=== PATIENT | male | born 2000 | race Caucasian/White ===

== ENCOUNTER 2022-09-25 16:35 | Emergency (ER) | payer OTHER, SELFPAY ==
[2022-09-25 16:40] VITALS: BP 118/73; PULSE 78; RESP 18; TEMP 37.2; O2SAT 98
--- NOTE | 2022-09-25 16:45 | DI.RAD_ITS ---
Exam(s) XR SHOULDER RT COMPLETE 2+V XR CLAVICLE RT EXAM: XR SHOULDER RT COMPLETE 2+V and XR clavicle RT CLINICAL HISTORY: pain s/p fall skiing. TECHNIQUE: 2D digital imaging was performed of the right clavicle and shoulder. Five images were ob tained. AP, Grashey, Y views were obtained. COMPARISON: There are no priors for comparison. FINDINGS: BONES: There is an acute comminuted fracture of the midshaft of the right clavicle with mild displace ment of the fractures. The medial fracture fragment is superiorly displaced relative to the lateral fracture fragment. No bony destructive lesion is seen. JOINTS: No dislocation present. SOFT TISSUE: Normal. IMPRESSION: Comminuted mildly displaced right clavicular fracture. DATA REPOSITORY: RADIATION DOSE DELIVERED:
--- NOTE | 2022-09-25 16:50 | ED.GENADUL_ITS ---
Discharge Plan Disposition Patient Disposition: Home Condition: Stable Discharge Details Chief Complaint: Orthopedic Clinical Impression: Closed fracture of right clavicle Primary Care Provider: Kristina,Local ED Provider: Perfecto Raymundo Home Meds and New Rx's Prescriptions: No Action No Known Home Meds Discharge Instructions Instructions: Clavicle Fracture (ED) Additional Instructions: Follow up with an orthopedist in your home area you can take 1000mg tylenol and 600mg ibuprofen every 6 hours as needed if you feel more ill, have severe worsening pain or new symptoms such as difficulty breathing return to the emergency department Medical Decision Making 22 yo male who denies chronic medical problems comes in with cc of right shoulder pain s/p fall while skiing today. He says he was wearing a helmet and caught an edge and fell landing on the right shoulder, no loc. Has no head pain, neck pain, chest/abd pain or back pain. HE has pain over the ac joint of the right shoulder, no visible or palpable deformity. No midline c spine tenderness, no signs of trauma to the head, caox4, perrl. He has tenderness at the ac joint and limited rom of the shoulder due to pain. No tenderness in the proximal or mid clavicle, no tenderness in the humerus, elbow, forearm, wrist or hand with intact distal sensation and pulses. Suspect ac joint sprain, will obtain xrays to further evaluate xrays confirm clavicle fracture, placed in sling, no changes in exam. HE is from [place] and is going home tomorrow, advised to see an orthopedist in his area, return precautions given Differential Diagnosis Differential Diagnosis: ac joint injury, fracture, sprain Imaging Data Radiologic Study: Attestation: I personally reviewed and interpreted this imaging study as follows: My impression: clavicle fracture on clavicle xray Radiologic Study #2: Attestation: I personally reviewed and interpreted this imaging study as follows: Imaging: X-Ray My impression: clavicle fx on shoulder xray HPI General Mode of arrival: ambulatory . Date/Time Provider Initiated Documentation: 09/25/22 16:36 . Limitations to Documentation: no limitations . Information obtained by: patient . History of Present Illness 22 year old M presents to the emergency department with the chief complaint of right shoulder pain, described as moderate, and it has been constant. No relieving factors improve symptom(s), No exacerbating factors reported . Patient notes denies fever/chills, nausea/vomiting and shortness of breath. Patient did receive the following treatments prior to arrival, none Related Data Home Medications Medication Instructions Recorded Confirmed Unknown [No Known Home Meds] 09/25/22 09/25/22 Allergies Allergy/AdvReac Type Severity Reaction Status Date / Time No Known Allergies Allergy Unverified 09/25/22 16:43 General Stated Complaint: Orthopedic PRASHANTH: 3 Review of Systems All systems reviewed & are unremarkable except as noted in HPI and below Constitutional Constitutional: Denies chills, Denies fever(s) and Denies weakness Cardiovascular Cardiovascular: Denies chest pain and Denies dyspnea Respiratory Respiratory: Denies cough and Denies dyspnea Gastrointestinal Gastrointestinal: Denies abdominal pain, Denies nausea and Denies vomiting Integumentary/Breasts Skin/Breast: Denies rash Neurologic Neurologic: Denies weakness PFSH All Active Problems (Updated 09/25/22 @ 17:36 by Perfecto Raymundo MD) Closed fracture of right clavicle (Acute) Social History Smoking risk assessment performed?: No Alcohol Intake: current Alcohol Intake frequency: holidays/special occasions only Substance use type: does not use Do you feel safe at home: Yes Do you feel safe in your relationship?: Yes Exam Const General: no acute distress Orientation: alert HENMT Head: normal to inspection Ears: external ears normal General nose exam: external nose normal Mouth: moist mucous membranes Eyes General: appearance normal, both eyes and all related structures Neck Neck: normal visual inspection Resp Effort & Inspection: normal respiratory effort and able to speak in complete sentences Cardio Rate: regular rate Skin General skin exam: no rashes or lesions noted Neuro General: patient alert and patient oriented x3 Extrem General: capillary refill normal Psych Mental Status: mental status grossly normal Course Vital Signs Vital signs: Vital Signs Temperature 37.2 C 09/25/22 16:40 Pulse 78 09/25/22 16:40 Respiratory Rate 18 09/25/22 16:40 Blood Pressure 118/73 09/25/22 16:40 Pulse Oximetry 98 09/25/22 16:40 Temperature 37.2 C 09/25/22 16:40 Temperature Source Oral 09/25/22 16:40 Pulse 78 09/25/22 16:40 Respiratory Rate 18 09/25/22 16:40 Respiratory Effort Normal, Non-Labored 09/25/22 16:42 Blood Pressure 118/73 09/25/22 16:40 Pulse Oximetry 98 09/25/22 16:40 Oxygen Delivery Method Room Air 09/25/22 16:40 Oxygen Flow Rate 0 09/25/22 16:40 PAWSS Have you Been Recently Intoxicated or Drunk Within the Last 30 days?: No Have you Ever Experienced Previous Episodes of Alcohol Withdrawal?: No Have you ever Experienced Withdrawal Seizures?: No Have you ever Experienced Delirium Tremens(DT)s?: No Have you ever undergone Alcohol Rehabilitation Treatment (i.e, inpt ot outpatient treatment programs)?: No Have you ever Experienced Blackouts?: No Have you ever Combined Alcohol with other Downers within the last 90 days?: No Have you ever Combined Alcohol with any other Substance of Abuse during the last 90 days?: No Positive Blood Alcohol level on Presentation? [PCS.BAL]: No Evidence of Increased Autonomic Activity (i.e. HR>120, tremor, sweating, agitation, nausea)?: No Result: 0
[2022-09-25] MEDS: Ibuprofen 600 MG TAB PO (16:58)
--- NOTE | 2022-09-25 17:44 | DI.VRAD_ITS ---
PROCEDURE INFORMATION: Exam: XR Right Shoulder Exam date and time: 09/25/2022 5:09 PM Age: 22 years old Clinical indication: Injury or trauma; Other: Pain S/P fall skiing; Injury date: 09/25/2022 TECHNIQUE: Imaging protocol: Radiologic exam of the right shoulder. Views: 2 or more views. COMPARISON: No relevant prior studies available. FINDINGS: Bones/joints: Comminuted fracture of the distal 3rd of the clavicle. The medial clavicular shaft is 1 shaft with superiorly displaced. AC joint is unremarkable. Right scapula is intact. Glenohumeral joint is unremarkable. Right ribs are unremarkable as visualized in a limited fashion. Lungs: Right upper lung is clear as visualized. Soft tissues: Normal. IMPRESSION: Displaced mildly comminuted right distal shaft clavicle fracture. Dictated and Authenticated by: Rich Petty MD. Ordering:JARRED Grove MD
--- NOTE | 2022-09-25 17:45 | DI.VRAD_ITS ---
PROCEDURE INFORMATION: Exam: XR Right Clavicle, Complete Exam date and time: 09/25/2022 5:14 PM Age: 22 years old Clinical indication: Injury or trauma; Other: Pain S/P fall skiing; Injury date: 09/25/22 TECHNIQUE: Imaging protocol: Radiologic exam of the right clavicle. Complete exam. Views: Any number of views. COMPARISON: CR XR SHOULDER RT COMPLETE 2+V 09/25/2022 5:09 PM FINDINGS: Bones/joints: Comminuted distal 3rd right clavicle fracture. Mild comminution. Superior displacement of the medial shaft 1 complete shaft width. Soft tissues: No soft tissue gas or foreign body. IMPRESSION: Displaced distal right clavicle fracture at the distal 3rd level. Mild comminution. Dictated and Authenticated by: Rich Petty MD. Ordering:JARRED Grove MD
[2022-09-25 17:47] VITALS: BP 115/68; PULSE 84; RESP 18; O2SAT 97
--- NOTE | 2022-09-25 17:48 | NUR.NOTE ---
disc of xray provided at time of discharge
== END 2022-09-25 17:48 | disposition home or self-care (01) ==
PROVIDERS: Emergency Provider Emergency Medicine
DX: S42.001A Fracture of unspecified part of right clavicle, initial encounter for closed fracture (principal); Y93.23 Activity, snow (alpine) (downhill) skiing, snowboarding, sledding, tobogganing and snow tubing
CPT/HCPCS: 99284; 73000; 73030